=== PATIENT | male | born 1955 ===

== ENCOUNTER → 2017-11-26 | Outpatient (CLI) | payer BC ==
--- NOTE | 2017-11-26 17:07 | XCELERA REPORT ---
[address] [address] Transthoracic Echocardiogram Report Name: EVELYN YOUNG Age: 62 yrs Gender: Male : 1955 Patient Status: Outpatient Patient Location: Study Date: 11/26/2017 09:51 AM Height: 70 in Weight: 174 lb BSA: 2.0 m2 Procedure: A two-dimensional transthoracic echocardiogram with color flow Doppler was performed. Study Quality: Good. Reason For Study: HTN History: HTN. Ordering Physician: LATRELL MARTINEZ Performed By: Shanti Vargas Interpretation Summary The left ventricle is normal in size. There is normal left ventricular wall thickness. LV EF is > than 60% Left ventricular systolic function is normal. Doppler measurements suggest normal left ventricular diastolic function The left ventricular wall motion is normal. There is no thrombus. The right ventricle is normal in size and function. The right atrium is normal. The left atrial size is normal. The interatrial septum is intact with no evidence for an atrial septal defect. There is no evidence of mitral valve prolapse. There is no mitral valve stenosis. There is a trace amount of mitral regurgitation There is no aortic valvular vegetation. There is no aortic valve stenosis There is no LVOT obstruction. There is a trace amount of aortic regurgitation There is no tricuspid stenosis. There is a trace amount of tricuspid regurgitation Right ventricular systolic pressure is normal. RVSP is 21 mm of Hg with RA mean of 5. There is no pulmonic valvular stenosis. There is no pulmonic valvular regurgitation. The aortic root is normal size. The inferior vena cava appeared small and collapsed with respiration (RAP 0-5 mmHg) There is no pericardial effusion. MMode/2D Measurements & Calculations RVDd: 3.5 cm LVIDd: 5.3 cm FS: 34.6 % Ao root diam: 2.5 cm IVSd: 0.92 cm LVIDs: 3.5 cm EDV(Teich): 136.8 ml LVPWd: 0.83 cm ESV(Teich): 50.2 ml Ao root area: 4.9 cm2 EF(Teich): 63.3 % LA dimension: 3.4 cm Doppler Measurements & Calculations MV E max ambrose: MV P1/2t max ambrose: Ao V2 max: LV V1 max P.8 cm/sec 60.2 cm/sec 124.9 cm/sec 4.2 mmHg MV A max ambrose: MV P1/2t: 76.8 msec Ao max PG: LV V1 max: 54.0 cm/sec 6.2 mmHg 102.6 cm/sec MV E/A: 1.1 MVA(P1/2t): 2.9 cm2 MV dec slope: 229.5 cm/sec2 MV dec time: 0.24 sec PA V2 max: TR max ambrose: 71.6 cm/sec 202.0 cm/sec PA max PG: TR max P.3 mmHg 2.0 mmHg Left Ventricle The left ventricle is normal in size. There is normal left ventricular wall thickness. LV EF is > than 60%. Left ventricular systolic function is normal. Doppler measurements suggest normal left ventricular diastolic function. The left ventricular wall motion is normal. There is no thrombus. There is no ventricular septal defect visualized. Right Ventricle The right ventricle is normal in size and function. Atria The right atrium is normal. The left atrial size is normal. The interatrial septum is intact with no evidence for an atrial septal defect. Mitral Valve There is no evidence of mitral valve prolapse. There is no vegetation seen on the mitral valve. There is no mitral valve stenosis. There is a trace amount of mitral regurgitation. Aortic Valve There is no aortic valvular vegetation. There is no aortic valve stenosis. There is no LVOT obstruction. There is a trace amount of aortic regurgitation. Tricuspid Valve There is no tricuspid stenosis. There is a trace amount of tricuspid regurgitation. Right ventricular systolic pressure is normal. RVSP is 21 mm of Hg with RA mean of 5. Pulmonic Valve There is no pulmonic valvular stenosis. There is no pulmonic valvular regurgitation. Great Vessels The aortic root is normal size. The inferior vena cava appeared small and collapsed with respiration (RAP 0-5 mmHg). Effusions There is no pericardial effusion. : LATRELL MARTINEZ > Nancy Rojas
== END ==
LOC: SP 09:15
DX: I10 Essential (primary) hypertension (principal)
CPT/HCPCS: 93306